=== PATIENT | male | born 1975 | race Caucasian/White ===

== ENCOUNTER → 2018-07-09 14:52 | Outpatient (CLI) | payer MEDICARE | END | disposition home or self-care (01) | LOC: D.RAD 14:52 | DX: M54.16 Radiculopathy, lumbar region (principal) ==

== ENCOUNTER 2018-12-20 08:23 | Outpatient (CLI) | payer MEDICARE ==
[~2018-12-20] VITALS: Ht 177.8 cm; Wt 88.6 kg
--- NOTE | ~2018-12-20 | HEMODYNAMI ---
PATIENT:DIANA MOREIRA MEDICAL RECORD: [id number] : 73 LOCATION:[facility] ADMISSION DATE: 12/20/18 Generatedon:12/20/201811:37 Patient name: DIANA MOREIRA Patient #: [id number] SSN: : 1975 Date of study: 12/20/2018 Page: Of Hemodynamic Procedure Report Patient Data Patient Demographics Procedure consent was obtained First Name: DIANA Gender: Male Last Name: HARISH : 1975 Patient #: [id number] Age: 43 year(s) Race: Unknown Additional ID: [id number] Contact details [address]: [address] [place] [address] State: [place] City: [place] Zip code: [address] Past Medical History Allergies Allergen Reaction Date Comments Reported Other allergy 12/20/2018 PCN Penicillins 12/20/2018 Admission Admission Data Admission Date: 12/20/2018 Admission Time: 8:23 Admit Source: Other Height (in.): 70 BSA: 2.07 (m2) Height (cm.): 177.8 BMI: 28.15 (kg/m2) Weight (lbs.): 196.21 Weight (kg.): 89 Lab Results Lab Result Date: 12/20/2018 Lab Result Time: 0:00 Biochemistry Name Units Result Min Max BUN mg/dl 15 --(--*-)-- 7 18 Creatinine mg/dl 1 --(--*-)-- 0.6 1.3 CBC Name Units Result Min Max Hemoglobin g/dl 17.3 --(---*)-- 13.5 17.5 Procedure Procedure Types Cath Procedure Diagnostic Procedure C [facility] w/Coronaries Procedure Description Procedure Date Procedure Date: 12/20/2018 Procedure Start Time: 11:26 Procedure End Time: 11:36 Procedure Staff Name Function Enmanuel Ibrahim MD Performing Physician Cony Betts RT Monitor Danyel Hall RT Scrub Estelle Csaas RN Nurse Scott Chávez RT Driver Procedure Data Cath Procedure Fluoroscopy Diagnostic fluoroscopy Total fluoroscopy Time: 3.4 time: 3.4 min min Diagnostic fluoroscopy Total fluoroscopy dose: 539 dose: 539 mGy mGy Contrast Material Contrast Material Type Amount (ml) Isovue 300 71 Entry Location Entry Primary Successful Side Size Upsize Upsize Entry Closure Franco ccessful Closure Location (Fr) 1 (Fr) 2 (Fr) Remarks Device Remarks Radial Right 6 Fr Mechanical artery Short Compression Estimated blood loss: 5 ml Diagnostic catheters Device Type Used For End Catheter Placement DIAGNOSTIC 5FR Infinity Procedure RBL-TG ([id number]) Procedure Complications No complications Procedure Medications Medication Administration Route Dosage 0.9% NaCl I.V. 100 ml/hr Oxygen etCO2 Nasal cannula 2 l/min Lidocaine 2% added to field 20 Heparin Flush Bag added to field 2 bags (1000units/500ml NS) Radial Cocktail added to field 1 syringe (Verapomil 2mg/Nitro 400mcg/Heparin 1500units) Versed I.V. 2 mg Fentanyl I.V. 50 mcg Versed I.V. 2 mg Fentanyl I.V. 50 mcg Hemodynamics Rest BSA: 2.07 (m2) HGB: 17.3 (g/dl) O2 Consumption: Estimated: 268.04 (ml/min) O2 Co nsumption indexed: Estimated:129.49 (ml/min/m) Heart Rate: 92 (bpm) Snapshots Pre Cath Intra NCS Post Cath Vital Signs Time Heart Resp SPO2 etCO2 NIBP (mmHg) Rhythm Pain Sedation Rate (ipm) (%) (mmHg) Status Level (bpm) 11:12:59 88 11 96 34.5 146/98(110) NSR 0 (11) 10(A) , No pain 11:17:09 92 20 97 33.2 142/100(113) NSR 0 (11) 10(A) , No pain 11:21:19 90 14 96 14.3 119/84(99) NSR 0 (11) 10(A) , No pain 11:25:23 92 18 96 34 128/87(100) NSR 0 (11) 10(A) , No pain 11:29:37 94 14 97 10.5 117/64(76) NSR 0 (11) 9(A) , No pain 11:33:47 88 15 98 33.2 120/71(92) NSR 0 (11) 10(A) , No pain Medications Time Medication Route Dose Verified Delivered Reason Notes E ffectiveness by by 11:13:13 0.9% NaCl I.V. 100 Enmanuel Estelle used for ml/hr Patrice Casas reception clerk 11:13:21 Oxygen etCO2 2 l/min Enmanuel Estelle used for Nasal Patrice Casas procedure cannula RN 11:13:27 Lidocaine 2% added 20ml Enmanuel Enmanuel for local to vial Patrice Ibrahim MD anesthetic field 11:13:31 Heparin Flush added 2 bags Enmanuel Enmanuel used for Bag to Patrice Ibrahim MD procedure (1000units/500ml field NS) 11:13:41 Radial Cocktail added 1 Enmanuel Enmanuel used for (Verapomil to syringe Patrice Ibrahim MD procedure 2mg/Nitro field 400mcg/Heparin 1500units) 11:22:22 Versed I.V. 2 mg Enmanuel Estelle for Patrice Casas sedation RN 11:22:28 Fentanyl I.V. 50 mcg Enmanuel Estelle for Patrice Casas sedation RN 11:27:50 Versed I.V. 2 mg Enmanuel Estelle for Patrice Casas sedation RN 11:27:57 Fentanyl I.V. 50 mcg Enmanuel Estelle for Patrice Casas sedation digital solutions architect Log Time Note 11:05:25 Informed consent obtained and on chart 11:05:28 Admit Source: Other 11:05:43 Diagnostic Cath status Elective 11:05:44 Scott Chávez RT(R) sent for patient. Start room use. 11:05:45 Time tracking: Regular hours (M-F 7:00 - 5:00) 11:05:48 Plan of Care:Hemodynamics will remain stable., Cardiac rhythm will remain stable., Comfort level will be maintained., Respiratory function will remain adequate., Patient/ family verbilizes understanding of procedure., Procedure tolerated without complication., Recovers from procedure without complications.. 11:06:17 H&P Date Dictated: 12/18/2018 Within 30 days and on chart., H&P Addendum completed by physician on day of procedure. (MUST COMPLETE FOR ALL OUTPATIENTS). 11:07:36 Patient received from Pre/Post Procedure Room to CCL 2 Alert and oriented. Tansferred to table in Supine position. 11:07:38 Warm blankets applied, and berta hugger turned on for patient comfort. 11:07:38 Correct patient and procedure confirmed by team. 11:07:39 ECG and BP/O2 sat monitors applied to patient. 11:07:39 Pre-procedure instructions explained to patient. 11:07:40 Pre-op teaching completed and patient verbalized understanding. 11:07:41 Family in waiting room. 11:07:42 Patient NPO since Midnight. 11:07:52 Patient allergic to Other allergyPCN 11:09:10 Is patient on blood thinner?Yes 11:09:22 PRE LOADED PLAVIX 11:09:31 Patient diabetic? No. 11:09:54 Previous problem with sedation/anesthesia? No ? 11:09:56 Snore? Yes 11:09:57 Sleep apnea? Yes 11:09:58 Deviated septum? No 11:10:00 Opens mouth fully? Yes 11:10:00 Sticks out tongue? Yes 11:10:05 Airway obstruction? No ? 11:10:08 Dentures? No ? 11:11:59 Vital chart was started 11:12:02 Full Disclosure recording started 11:12:10 Patient Height : 70 inches 11:12:16 Patient Weight : 196.21 lbs 11:12:52 Patient allergic to Penicillins 11:12:57 Is the patient allergic to Iodine/contrast media? No. 11:13:04 Modified Rick's test Ulnar < 7 seconds 11:13:06 Patient pain scale 0/10 ?. 11:13:12 IV patent on arrival in left hand with 0.9% NaCl at [facility]. 11:13:13 0.9% NaCl 100 ml/hr I.V. was administered by Estelle Casas RN; used for procedure; 11::21 Oxygen 2 l/min etCO2 Nasal cannula was administered by Estelle Casas RN; used for procedure; 11::27 Lidocaine 2% 20ml vial added to field was administered by Enmanuel Ibrahim MD; for local anesthetic; :13:31 Heparin Flush Bag (1000units/500ml NS) 2 bags added to field was administered by Enmanuel Ibrahim MD; used for procedure; ::33 Lab Result : BUN 15 mg/dl ::33 Lab Result : Creatinine 1 mg/dl ::33 Lab Result : Hemoglobin 17.3 g/dl 11:13:36 Lab results completed and on chart. 11:13:41 Radial Cocktail (Verapomil 2mg/Nitro 400mcg/Heparin 1500units) 1 syringe added to field was administered by Enmanuel Ibrahim MD; used for procedure; 11:14:21 Right Radial & Right Groin area was prepped with chlora-prep and draped in sterile fashion 11:14:22 Alarms reviewed by R. N. 11:14:22 Sharps counted by scrub and verified by R.N. 11:14:25 Use device set Radial Dx or PCI 11:14:27 ACIST Syringe (67037) opened to sterile field. 11:14:27 Bag Decanter (2002S) opened to sterile field. 11:14:28 ACIST Hand Control (84806) opened to sterile field. 11:14:28 ACIST Manifold (67895) opened to sterile field. 11:14:29 Tegaderm 4 x 4 (1626W) opened to sterile field. 11:14:32 Medline Cath Pack ([id number]) opened to sterile field. 11:14:32 DIAGNOSTIC WIRE .035 260cm J wire (439441) opened to sterile field. 11:14:33 MBrace Wrist Support ([id number]) opened to sterile field. 11:14:34 SHEATH 6FR Slender (93-7607) opened to sterile field. 11:18:06 Baseline sample Acquired. 11:18:09 Rhythm: sinus rhythm 11:21:49 --------ALL STOP TIME OUT------ 11:21:49 Final Timeout: patient, procedure, and site verified with staff and physician. All members of the team are in agreement. 11:21:51 Right Radial & Right Groin site verified by team. 11:21:55 Fire Safety Assessment: A--An alcohol-based skin anteseptic being used preoperatively., C--Open oxygen or nitrous oxide is being used., D--An ESU, laser, or fiber-optic light is being used. 11:21:58 Physical assessment completed. ASA score P 2 - A patient with mild systemic disease as per Enmanuel Ibrahim MD. 11:22:01 Sedation plan: IV Moderate Sedation Medication:Versed, Fentanyl 11:22:11 Zero performed for pressure channel P1 11::22 Versed 2 mg I.V. was administered by Estelle Casas RN; for sedation; :: Fentanyl 50 mcg I.V. was administered by Estelle Casas RN; for sedation; ::53 Procedure started. 11:26:04 Local anesthetic to right radial artery with Lidocaine 2% by Enmanuel Ibrahim MD.INITIAL ACCESS ONLY 11:26:20 A 6 Fr Short sheath was inserted into the Right Radial artery 11::57 A DIAGNOSTIC 5FR Infinity RBL-TG ([id number]) was advanced over the wire and used for Procedure. 11:27:42 LV gram done using ALLEN 11::50 Versed 2 mg I.V. was administered by Estelle Casas RN; for sedation; ::51 Injector settings: Ml/sec: 5, Volume: 15, ::57 Fentanyl 50 mcg I.V. was administered by Estelle Casas RN; for sedation; 11::15 EF : 65 % 11::57 RCA angiography performed. 11:29:01 Catheter exchanged over wire. 11:30:07 GUIDE 6FR XBLAD 3.5 catheter ([id number]) opened to sterile field. 11:30:17 6 Fr XBLAD 3.5 guide catheter was inserted over the wire 11:30:56 Guide Catheter removed. unable to cannulate vessel. 11:31:21 GUIDE 6FR EBU 3.0 catheter ([id number]) opened to sterile field. 11:31:46 6 Fr EBU 3 guide catheter was inserted over the wire 11:33:25 LCA angiography performed. 11:33:32 Guide catheter removed. 11:33:37 Procedure ended.(Physican Out) 11:34:07 TR BAND Standard ([id number]) opened to sterile field. 11:34:18 Sheath removed intact; hemostasis achieved with Mechanical Compression to the Right Radial artery. :34:26 Fluoroscopy time 03.40 minutes. 11:34:30 Fluoroscopy dose: 539 mGy :34:30 Flurop Dose total: 539 11:34:51 Contrast amount:Isovue 300 71ml. 11:34:53 Sharps counted by scrub and verified by R.N. 11:34:55 TR band inflated with 11cc of air. 11:35:02 Post-procedure physical assessment completed. ASA score P 2 - A patient with mild systemic disease as per Enmanuel Ibrahim MD. 11:35:05 Post procedure rhythm: sinus rhythm 11:35:07 Estimated blood loss: 5 ml 11:35:09 Post procedure instruction explained to patient.Patient verbalizes understanding. 11:35:10 Patient needs reinforcement of post procedure teaching. 11:36:14 Procedure and supply charges have been captured, reviewed, submitted and are correct. 11:36:16 Procedure Complication : No complications 11:36:18 Vital chart was stopped 11:36:18 See physician's report for complete and final results. 11:36:20 Report given to Pre/Post Procedure Room. 11:36:22 Patient transfered to Pre/Post Procedure Room with Bed. 11:36:23 Procedure ended. 11:36:23 Full Disclosure recording stopped 11:36:27 End room use (Document Last) Device Usage Item Name Manufacture Quantity Catalog Hospital Part Current Minimal Lot# / Number Charge Number Stock Stock Serial# Code ACIST Acist 1 75867 854697 837909 901294 20 Syringe Medical (11059) Systems Inc Bag Microtek 1 2001S 695061 27335 849421 5 Decanter Medical Inc. () ACIST Hand Acist 1 33302 233213 874340 941893 5 Control Medical (38955) Systems Inc ACIST Acist 1 24843 843100 586461 998095 5 Manifold Medical (59490) Systems Inc Tegaderm 4 3M 1 1626W 587523 301070 187368 5 x 4 (1626W) Medline Medline 1 [id number] 785562 68553 332854 5 Cath Pack ([id number]) DIAGNOSTIC St Misael 1 131340 534821 640193 017089 30 WIRE .035 260cm J wire (696792) MBrace Advanced 1 140-0250-00 579350 44405 271809 5 Wrist Vascular Support Dynamics ([id number]) SHEATH 6FR Terumo 1 [id number] 056511 383994 277727 5 Slender (80-1060) DIAGNOSTIC Cardinal 1 [id number] 106092 137249 5 5FR [facility] Infinity RBL-TG ([id number]) GUIDE 6FR Cardinal 1 [id number] 274527 197710 455398 10 XBLAD 3.5 Health catheter (22764168) GUIDE 6FR Medtronic 1 [id number] 791051 56267 032273 0 EBU 3.0 catheter ([id number]) TR BAND Terumo 1 [id number] 433281 467406 244259 40 Standard ([id number]) Signature Audit [place] Stage Time Signature Unsigned Intra-Procedure 12/20/2018 Cony Betts 11:37:38 AM RT(R) Signatures Monitor : Cony Betts Signature : RT Date : Time : [address] [address]
[2018-12-20 08:48] VITALS: BP 145/79; Ht 177.8 cm; Wt 88.6 kg
[2018-12-20] MEDS ORDERED: LIPITOR10 MG PO (08:57)
[2018-12-20] MEDS ORDERED: PLAVIX75 MG PO (08:58)
[2018-12-20 08:59] LABS: BASOPHILS 0.4 % (0-2); EOSINOPHILS 1.2 % (0-7); HEMATOCRIT 48.8 % (42.0-54.0); HEMOGLOBIN 17.3 g/dL (13.5-17.5); IMMATURE GRANULOCYTES 0.3 % (0-5); LYMPHOCYTES 30.3 % (15-50); MCH 32.8 pg (26.0-34.0); MCHC 35.5 g/dL (31.0-37.0); MCV 92.4 fL (80.0-100.0); MEAN PLATELET VOLUME 9.9 fL (7.4-10.4); MONOCYTES 10.6 % (2-11); NEUTROPHILS 57.2 % (40-80); PLATELET COUNT 276 10x3/uL (130-400); RBC 5.28 10x6/uL (4.20-6.10); RDW 14.7 % (11.5-14.5); WBC 10.7 10x3/uL (4.8-10.8)
[2018-12-20 09:09] LABS: CALC OSMOLALITY 276 mosm/kg (275-300); CALCIUM 9.2 mg/dL (8.5-10.1); CARBON DIOXIDE 23.6 mmol/L (21.0-32.0); CHLORIDE - SERUM 102 mmol/L (98-107); GLUCOSE 101 mg/dL (74-106); POTASSIUM - SERUM 3.8 mmol/L (3.5-5.1); SODIUM 138 mmol/L (136-145); UREA NITROGEN 15 mg/dL (7-18); eGFR NON AFRICAN AMERICAN 86 mL/min (90-120)
--- NOTE | 2018-12-20 11:55 | NUR ---
PT MORE ALERT. SET HEAD OF BED TO 30 DEGREES. RIGHT WRIST TR BAND IN PLACE. NO BLEEDING/HEMATOMA. PT SET UP WITH DRINK AND SANDWICH TRAY.
--- NOTE | 2018-12-20 12:25 | NUR ---
RIGHT WRIST TR BAND IN PLACE. NO BLEEDING/HEMATOMA NOTED. PT REMINDED TO KEEP WRIST STRAIGHT.
--- NOTE | 2018-12-20 12:31 | NUR ---
DR. JIMENEZ ROUNDED AND SPOKE WITH PT AND PT'S FAMILY. 3cc REMOVED FROM RIGHT WRIST TR BAND. NO BLEEDING/HEMATOMA NOTED.
--- NOTE | 2018-12-20 12:45 | NUR ---
3cc REMOVED FROM TR BAND. NO BLEEDING/HEMATOMA NOTED.
--- NOTE | 2018-12-20 13:00 | NUR ---
3cc REMOVED FROM TR BAND. NO BLEEDING/HEMATOMA NOTED. LEFT AC PIV D/C'D WITH CATH TIP INTACT. PT TOLERATED WELL. VSS.
--- NOTE | 2018-12-20 13:15 | NUR ---
3cc OF AIR REMOVED FROM TR BAND. NO BLEEDING OR HEMATOMA NOTED.
--- NOTE | 2018-12-20 13:22 | NUR ---
RIGHT TR BAND REMOVED. NO BLEEDING/HEMATOMA NOTED. DRESSING APPLIED. DISCUSSED DISCHARGE INSTRUCTIONS WITH PT AND PT'S FAMILY. THEY VOICED UNDERSTANDING.
--- NOTE | 2018-12-20 13:30 | NUR ---
PT TAKEN OUT TO VEHICLE BY WHEELCHAIR. NO DISTRESS NOTED. RIGHT WRIST DRESSING C/D/I. NO S/S OF HEMATOMA NOTED. PT HAS ALL BELONGINGS.
--- NOTE | 2018-12-20 15:09 | OP ---
PATIENT NAME: DIANA MOREIRA MEDICAL RECORD: [id number] :73 LOCATION:[facility] ADMISSION DATE: SURGEON: LEONARDO JIMENEZ MD DATE OF OPERATION: 12/20/2018 PROCEDURES: 1. Left heart catheterization. 2. Selective coronary angiography. 3. Left ventriculogram. INDICATION: Chest pain compatible with angina. PROCEDURE IN DETAIL: After informed consent was obtained and after a detailed description of risks, benefits as well as alternative therapies, the patient elected to proceed with angiogram and angioplasty. The right radial area was prepped and draped in normal sterile fashion. Right radial artery was cannulated via modified Seldinger technique with placement of 5-Russian sheath. All catheters exchanged through this sheath. FINDINGS: Left ventriculogram was performed in standard 30-degree ALLEN view, reveals good cardiac wall motion throughout all segments. Overall ejection fraction estimated 60%. SELECTIVE CORONARY ANGIOGRAPHY: Left main, left anterior descending, left circumflex, right coronary artery are all smooth-walled vessels with no angiographic evidence of coronary artery disease. OVERALL IMPRESSION: 1. No angiographic evidence of coronary artery disease. 2. Normal left ventricular systolic function. Chest pain is noncardiac in etiology. No further cardiac workup needs to be ascertained. TRANSINT:[id number] Voice Confirmation ID: [id number] DOCUMENT ID: [id number] LEONARDO JIMENEZ MD at 1509 CC: [id number] DICTATION DATE: 12/20/18 1137 SECURITY ESCORT: 12/20/18 1226 DEP CLI 12/20/18 [place] [address]
== END 2018-12-20 13:30 | disposition home or self-care (01) ==
LOC: D.CATH 08:23
PROVIDERS: Internal Medicine Interventional Cardiology
DX: R07.89 Other chest pain (principal); Z01.812 Encounter for preprocedural laboratory examination